=== PATIENT | female | born 1970 | race Caucasian/White ===

== ENCOUNTER 2020-12-30 18:35 | Emergency (ER) | payer OTHER ==
[~2020-12-30] VITALS: Ht 165.1 cm; Wt 65.0 kg
[2020-12-30] MEDS ORDERED: ONDANSETRON ODT 4 MG PO ONE (19:30)
[2020-12-30 19:51] LABS: HCG UR SG 1.006 (1.003-1.030); MICROSCOPIC NOT IND
[2020-12-30 19:53] LABS: BASOPHILS % (AUTO) 1 % (0-1); EOSINOPHILS % (AUTO) 3 % (1-7); LYMPHOCYTES % (AUTO) 44 % (22-44); MEAN CORPUSCULAR HEMOGLOBIN 32.1 pg (27.0-34.8); MEAN CORPUSCULAR HGB CONC 33.8 g/dL (32.4-35.8); MEAN PLATELET VOLUME 7.8 fL (7.4-10.4); MONOCYTES % (AUTO) 8 % (2-9); NEUTROPHILS % (AUTO) 44 % (42-75); PLATELET COUNT 240 x10^3/uL (130-400); RED BLOOD COUNT 4.55 x10^6/uL (3.82-5.3)
[2020-12-30 19:54] LABS: MD NO
[2020-12-30 19:56] LABS: ALANINE AMINOTRANSFERASE 35 U/L (12-78); ALBUMIN 3.9 g/dL (3.4-5.0); ANION GAP 9 mmol/L (5-15); CALCIUM 8.7 mg/dL (8.5-10.1); CHLORIDE 107 mmol/L (98-107); CREATININE 0.77 mg/dL (0.55-1.02)
[2020-12-30 19:58] LABS: ALKALINE PHOSPHATASE 39 U/L (45-117); BILIRUBIN,TOTAL 0.4 mg/dL (0.2-1.0); TOTAL PROTEIN 7.4 g/dL (6.4-8.2)
[2020-12-30] MEDS ORDERED: OMNIPAQUE 350 MG/ML, 100ML BOTTLE ONE (20:14)
--- NOTE | 2020-12-30 20:48 | NUR ---
Pt calm in room. Denies any needs at this time. warm blanket given. at bedside.
[2020-12-30 21:18] VITALS: BP 116/66
--- NOTE | 2020-12-30 21:20 | NUR ---
Pt IV dc'd intact. Pt dc'd with written and verbal instructions. Pt states understanding. Pt ambulatory out of ED without difficulty. Pt home with .
== END 2020-12-30 21:22 | disposition home or self-care (01) ==
LOC: ED 21:00
DX: K80.20 Calculus of gallbladder without cholecystitis without obstruction (principal); D25.9 Leiomyoma of uterus, unspecified; R94.31 Abnormal electrocardiogram [ECG] [EKG]
CPT/HCPCS: 36415; 74177; 80053; 81003; 81025; 85025; 93005; 99285; Q9967